=== PATIENT | female | born 1955 | race Caucasian/White ===

== ENCOUNTER 2016-12-01 14:04 | Emergency (ER) | payer BC ==
[~2016-12-01] VITALS: Ht 165.1 cm; Wt 88.6 kg
[2016-12-01 14:07] VITALS: BP 201/98; PULSE 89; RESP 14; TEMP 98.1; O2SAT 98
[2016-12-01] MEDS ORDERED: TRIA1TAB21 PO (16:15)
[2016-12-01] MEDS ORDERED: TRAZ300T2 PO (16:15)
[2016-12-01] MEDS ORDERED: PRIS100T PO (16:15)
[2016-12-01] MEDS ORDERED: XANA1TAB PO (16:15)
[2016-12-01 16:31] LABS: AUTOMATED NEUTROPHIL # 8.3 TH/MM3 (1.8-7.7); BASOPHIL % 0.4 % (0.0-2.0); EOSINOPHIL % 0.3 % (0.0-4.0); HEMATOCRIT 43.7 % (35.0-46.0); HEMO FLAGS DIFF FINAL; LYMPH % 16.4 % (9.0-44.0); LYMPHOCYTE # 1.8 TH/MM3 (1.0-4.8); MEAN CELL VOLUME 90.1 FL (80.0-100.0); MEAN CORPUSCULAR HEMOGLOBIN 31.5 PG (27.0-34.0); MONO % 6.1 % (0.0-8.0); NEUT % 76.8 % (16.0-70.0); PLATELET COUNT 204 TH/MM3 (150-450); RED BLOOD COUNT 4.85 MIL/MM3 (4.00-5.30); RED CELL DISTRIBUTION WIDTH 14.2 % (11.6-17.2); WHITE BLOOD COUNT 10.8 TH/MM3 (4.0-11.0)
--- NOTE | 2016-12-01 16:49 | RADRPT ---
EXAM DATE/TIME: 12/01/2016 16:24 [facility] COMPARISON: No previous studies available for comparison. INDICATIONS : Bilateral upper and lower extremity weakness. RADIATION DOSE: 31.69 CTDIvol (mGy) MEDICAL HISTORY : None SURGICAL HISTORY : Appendectomy. ENCOUNTER: Initial ACUITY: 1 month PAIN SCALE: 0/10 LOCATION: cranial TECHNIQUE: Multiple contiguous axial images were obtained of the head. Using automated exposure control and adj ustment of the mA and/or kV according to patient size, radiation dose was kept as low as reasonably a chievable to obtain optimal diagnostic quality images. FINDINGS: CEREBRUM: The ventricles are normal for age. No evidence of midline shift, mass lesion, hemorrhage or acute in farction. No extra-axial fluid collections are seen. POSTERIOR FOSSA: The cerebellum and brainstem are intact. The 4th ventricle is midline. The cerebellopontine angle i s unremarkable. EXTRACRANIAL: The visualized portion of the orbits is intact. SKULL: The calvaria is intact. No evidence of skull fracture. CONCLUSION: Normal examination for a patient of this age. Sedrick Smith MD on December 01, 2016 at 16:47 Board Certified Radiologist. This report was verified electronically.
[2016-12-01 17:00] VITALS: BP 162/84; PULSE 72; RESP 19; O2SAT 97
--- NOTE | 2016-12-01 17:19 | RADRPT ---
EXAM DATE/TIME: 12/01/2016 16:24 [facility] COMPARISON: No previous studies available for comparison. INDICATIONS : Radiculopathy. RADIATION DOSE: 23.21 CTDIvol (mGy) MEDICAL HISTORY : None SURGICAL HISTORY : Appendectomy. ENCOUNTER: Initial ACUITY: 1 month PAIN SCALE: 0/10 LOCATION: Bilateral neck TECHNIQUE: Volumetric scanning of the cervical spine was performed. Multiplanar reconstructions in the sagittal, coronal and oblique axial planes were performed. Using automated exposure control and adjustment o f the mA and/or kV according to patient size, radiation dose was kept as low as reasonably achievable to obtain optimal diagnostic quality images. FINDINGS: There is moderate degenerative disc disease in the cervical spine. There is a mild to moderate bony f oraminal stenosis on the right side at C5-6. No significant central canal stenosis. No fracture or sp ondylolisthesis. No prevertebral soft tissue swelling. Mild facet arthropathy. CONCLUSION: 1. Moderate degenerative disc disease. Bony foraminal stenosis on the right side at C5-6. No acute fi ndings. Sedrick Smith MD on December 01, 2016 at 17:13 Board Certified Radiologist. This report was verified electronically.
--- NOTE | 2016-12-01 17:32 | PD ---
HPI Chief Complaint: Numbness/Tingling Time Seen by Provider: 17:26 Travel History International Travel<30 days: No Contact w/Intl Traveler<30days: No Traveled to known affect area: No History of Present Illness HPI 60-year-old female that presents to the ED for evaluation of numbness and tingling to her arms and legs. Per patient she's had this for over a month. Per patient's constant. Nothing makes it better or worse. He states that she went to see her primary care doctor who did some testing and was essentially negative. Unclear if any thing else was being done. Per patient she got anxious because she talked to her friends who work and radiology and they were concerned that she could have MS. She has no history of this before or any family history of this. She states the numbness and tingling mainly affects the left and right arm but also the extremities. Per patient he margins more of the tingling in the numbness itself. She denies any back injuries or neck injuries. No history of cancer. Takes no blood thinners. She states that she was checked for diabetes as well as oriented disease is by her doctor in both work and an EKG. Patient has no chest pain or shortness of breath. No pain of any kind. No blurry vision or double vision. Allergies to gout. Denies any trouble swallowing. Denies any troubles in mentation. She's never had anything like this before. 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 and vomiting Reported Meds & Prescriptions Reported Meds & Active Scripts Active Reported Trazodone (Trazodone HCl) 300 Mg Tab 300 Mg PO HS Triazolam 0.25 Mg Tab 0.5 Mg PO HS Xanax Xr 24 HR (Alprazolam) 1 Mg Tab 1 Mg PO BID Pristiq 24 HR (Desvenlafaxine ER 24 HR) 100 Mg Tab 100 Mg PO DAILY Review of Systems General / Constitutional: No: Fever, Chills, Weight Gain, Weight Loss, Other Eyes: No: Diploplia, Blurred Vision, Photophobia, Drainage, Redness, Foreign Body Sensation, Pain, Tearing, Blind Spots, Visual changes, Blindness, Other HENT: No: Headaches, Vertigo, Lightheadedness, Sore Throat, Rhinitis, Rhinorrhea, Congestion, Nosebleed, Neck Stiffness, Neck Pain, Masses, Gingival Bleeding, Dental Difficulties, Ear Discharge, Earache, Other Cardiovascular: No: Chest Pain or Discomfort, Palpitations, Irregular Rhythm, Tachycardia, Diaphoresis, Syncope, Dyspnea on exertion, Varicosities, Edema, Cyanosis, Varicosities, Phlebitis, Claudication, Other Respiratory: No: Cough, Shortness of Breath, Wheezing, Sneezing, Orthopnea, Hemoptysis, Stridor, Night Sweats, Pleuritic Pain, Other Gastrointestinal: No: Nausea, Vomiting, Diarrhea, Abdominal Pain, Hematemesis, Hematochezia, Constipation, Changes in Bowel Habits, Indigestion, Dysphagia, Loss of Appetite, Other Genitourinary: No: Urgency, Frequency, Dysuria, Nocturia, Hematuria, Decreased Urinary Output, Oliguria, Hesitancy, Dribbling, Incontinence, Pelvic Pain, Flank Pain, Dyspareunia, Discharge, Dysmenorrhea, Menorrhagia, Metorrhagia, Vaginal Bleeding, Other Musculoskeletal: No: Myalgias, Arthralgias, Limited ROM, Weakness, Cramping, Edema, Pain, Atrophy, Other Skin: No Rash, No Itching, No Dryness, No Lumps, No Hives, No Change in Pigmentation, No Change in nails, No Alopecia, No Lesions, No Breast Lumps, No Breast Tenderness, No Breast Swelling, No Other Neurologic: Positive: Paresthesia, No: Weakness, Dizziness, Syncope, Focal Abnormalities, Coordination Problem, Tremor, Ataxia, Headache, Change in Mentation, Slurred Speech, Incontinence, Seizures, Sensory Disturbance, Other Psychiatric: No: Anxiety, Depression, Suicidal Ideations, Disorder of Thought, Mood Disorder, Substance Abuse, Homicidal Ideation, Other Endocrine: No: Heat Intolerance, Cold Intolerance, Polyuria, Polydipsia, Other Hematologic/Lymphatic: No: Easy Bruising, Lymph Node Enlargement, Other Physical Exam Narrative GENERAL: SKIN: Warm and dry. HEAD: Atraumatic. Normocephalic. EYES: Pupils equal and round 4 mm reactive to light and accommodation. No scleral icterus. No injection or drainage. ENT: No nasal bleeding or discharge. Mucous membranes pink and moist. Tongue is midline. No uvula deviation. NECK: Trachea midline. No JVD. CARDIOVASCULAR: Regular rate and rhythm. No murmurs, S3, S4. RESPIRATORY: No accessory muscle use. Clear to auscultation. Breath sounds equal bilaterally. GASTROINTESTINAL: Abdomen soft, non-tender, nondistended. Hepatic and splenic margins not palpable. MUSCULOSKELETAL: Extremities without clubbing, cyanosis, or edema. No obvious deformities. Full range of motion of the upper and lower extremities bilaterally. 2+ pulses bilaterally. 5 out of 5 strength bilaterally. NEUROLOGICAL: Awake and alert. No obvious cranial nerve deficits. Motor grossly within normal limits. Five out of 5 muscle strength in the arms and legs. Normal speech. PSYCHIATRIC: Appropriate mood and affect; insight and judgment normal. Data Data Last Documented VS Vital Signs Date Time Temp Pulse Resp B/P Pulse Ox O2 Delivery O2 Flow Rate FiO2 12/01/16 18:16 70 17 160/74 97 Room Air 12/01/16 14:07 98.1 Orders Electrocardiogram (12/01/16 15:55) Complete Blood Count With Diff (12/01/16 15:55) Basic Metabolic Panel (Bmp) (12/01/16 15:55) Troponin I (12/01/16 15:55) Magnesium (Mg) (12/01/16 15:55) Thyroid Stimulating Hormone (12/01/16 15:55) Ct Brain W/O Iv Contrast(Rout) (12/01/16 15:55) Ct Cerv Spine W/O Contrast (12/01/16 ) Labs Laboratory Tests Test 12/01/16 12/01/16 16:10 17:25 White Blood Count 10.8 TH/MM3 Red Blood Count 4.85 MIL/MM3 Hemoglobin 15.3 GM/DL Hematocrit 43.7 % Mean Corpuscular Volume 90.1 FL Mean Corpuscular Hemoglobin 31.5 PG Mean Corpuscular Hemoglobin 35.0 % Concent Red Cell Distribution Width 14.2 % Platelet Count 204 TH/MM3 Mean Platelet Volume 8.3 FL Neutrophils (%) (Auto) 76.8 % Lymphocytes (%) (Auto) 16.4 % Monocytes (%) (Auto) 6.1 % Eosinophils (%) (Auto) 0.3 % Basophils (%) (Auto) 0.4 % Neutrophils # (Auto) 8.3 TH/MM3 Lymphocytes # (Auto) 1.8 TH/MM3 Monocytes # (Auto) 0.7 TH/MM3 Eosinophils # (Auto) 0.0 TH/MM3 Basophils # (Auto) 0.0 TH/MM3 CBC Comment DIFF FINAL Differential Comment Sodium Level 140 MEQ/L Potassium Level 4.1 MEQ/L Chloride Level 105 MEQ/L Carbon Dioxide Level 28.9 MEQ/L Anion Gap 6 MEQ/L Blood Urea Nitrogen 9 MG/DL Creatinine 0.75 MG/DL Estimat Glomerular Filtration 78 ML/MIN Rate Random Glucose 107 MG/DL Calcium Level 9.1 MG/DL Magnesium Level 2.1 MG/DL Troponin I LESS THAN 0.02 NG/ML Thyroid Stimulating Hormone 1.090 uIU/ML 3rd Gen [facility] Medical Decision Making Medical Screen Exam Complete: Yes Emergency Medical Condition: Yes Medical Record Reviewed: Yes Interpretation(s) CBC & BMP Diagram 12/01/16 16:10 12/01/16 17:25 EKG shows sinus rhythm with no sign of ischemia or arrhythmia read by me and attending. Troponin and CK-MB negative. TSH negative. Last Impressions Head CT 12/01/16 1555 Signed Impressions: Service Date/Time: Thursday, December 01, 2016 16:24 - CONCLUSION: Normal examination for a patient of this age. Sedrick Smith MD Cervical Spine CT 12/01/16 0000 Signed Impressions: Service Date/Time: Thursday, December 01, 2016 16:24 - CONCLUSION: 1. Moderate degenerative disc disease. Bony foraminal stenosis on the right side at C5-6. No acute findings. Sedrick Smith MD Differential Diagnosis Neuropathy versus peripheral neuropathy versus radiculopathy versus electron abnormality versus tumor versus mass versus stroke Narrative Course 61-year-old female that presents to the ED for evaluation of numbness and tingling to the arms and legs for one month. Patient was properly examined and was found to have signs and symptoms which appeared to be consistent with peripheral neuropathy. I do not see any sign of acute medical distress. Patient has no obvious findings suggestive of stroke or severe disease. Recommendation at this time is to do imaging to make sure there is no other acute disease and some basic lab work. Patient agrees first to proceed. Labs and imaging showed no sign of acute disease. My attending Dr. Myers evaluated the patient with me and agrees with plan. Patient was reassured and labs and imaging were essentially unremarkable. Recommendation is for follow with neurology. See ED worsening symptoms. She is happy with care. All questions were answered to the best of our ability. Diagnosis Primary Impression: Peripheral neuropathy Qualified Code: G62.9 - Peripheral polyneuropathy Referrals: Jose Silverio PhD MD Patient Instructions: General Instructions Additional Instructions: Follow with neurologist. See ED for any worsening symptoms. Continue taking the medications prescribed by your doctor. Med/Other Pt SpecificInfo: No Change to Meds Disposition: 01 DISCHARGE HOME Condition: Stable Panda Seymour Dec 01, 2016 17:32
--- NOTE | 2016-12-01 17:59 | PD ---
Data Data Last Documented VS Vital Signs Date Time Temp Pulse Resp B/P Pulse Ox O2 Delivery O2 Flow Rate FiO2 12/01/16 14:07 98.1 89 14 201/98 98 Orders Electrocardiogram (12/01/16 15:55) Complete Blood Count With Diff (12/01/16 15:55) Basic Metabolic Panel (Bmp) (12/01/16 15:55) Troponin I (12/01/16 15:55) Magnesium (Mg) (12/01/16 15:55) Thyroid Stimulating Hormone (12/01/16 15:55) Ct Brain W/O Iv Contrast(Rout) (12/01/16 15:55) Ct Cerv Spine W/O Contrast (12/01/16 ) Labs Laboratory Tests Test 12/01/16 16:10 White Blood Count 10.8 TH/MM3 Red Blood Count 4.85 MIL/MM3 Hemoglobin 15.3 GM/DL Hematocrit 43.7 % Mean Corpuscular Volume 90.1 FL Mean Corpuscular Hemoglobin 31.5 PG Mean Corpuscular Hemoglobin 35.0 % Concent Red Cell Distribution Width 14.2 % Platelet Count 204 TH/MM3 Mean Platelet Volume 8.3 FL Neutrophils (%) (Auto) 76.8 % Lymphocytes (%) (Auto) 16.4 % Monocytes (%) (Auto) 6.1 % Eosinophils (%) (Auto) 0.3 % Basophils (%) (Auto) 0.4 % Neutrophils # (Auto) 8.3 TH/MM3 Lymphocytes # (Auto) 1.8 TH/MM3 Monocytes # (Auto) 0.7 TH/MM3 Eosinophils # (Auto) 0.0 TH/MM3 Basophils # (Auto) 0.0 TH/MM3 CBC Comment DIFF FINAL Differential Comment Troponin I LESS THAN 0.02 NG/ML Thyroid Stimulating Hormone 1.090 uIU/ML 3rd Gen MDM Supervised Visit with MARINO: Yes Narrative Course I, Dr. Perera, have reviewed the advance practice practioner's documentation and am in agreement, met with the patient face to face, made the diagnosis, and the medical decision making was done by me. *My assessment and Findings: 60-year-old female here with complaint of paresthesias to the bilateral arms and legs for the last month, hasn't found anything that makes the symptoms better or worse. She was seen by her PCP to get an EKG and blood work that was unremarkable. She does not have any history of diabetes, neuropathy. Patient has not had any weakness. She notes the numbness and tingling to be greatest in the fourth and fifth digits in the right hand as well as the left foot. Neurologic examination is unremarkable except for subjective paresthesias within these areas. Differential includes neuropathy, polyneuropathy, less likely cervical radiculopathy, intracranial mass lesion, electrolyte abnormality given the bilaterality and duration of her symptoms. CT brain and cervical spine shows minimal mild degenerative changes but no acute abnormalities. His laboratory workup unremarkable will discharge home with outpatient neurology follow-up for potential outpatient MRI and EMG. Rossy Perera MD Dec 01, 2016 17:59
[2016-12-01 18:16] VITALS: BP 160/74; PULSE 70; RESP 17; O2SAT 97
[2016-12-01 18:47] LABS: ANION GAP 6 MEQ/L (5-15); BICARBONATE 28.9 MEQ/L (21.0-32.0); BLOOD UREA NITROGEN 9 MG/DL (7-18); CHLORIDE 105 MEQ/L (98-107); GLOMERULAR FILTRATION RATE 78 ML/MIN (>89); MAGNESIUM 2.1 MG/DL (1.5-2.5); POTASSIUM 4.1 MEQ/L (3.5-5.1); SODIUM (NA) 140 MEQ/L (136-145)
--- NOTE | 2016-12-02 14:31 | EKG ---
Date Performed: 12/01/2016 Time Performed: 16:06:29 PTAGE: 61 years EKG: Sinus rhythm NORMAL ECG NO PREVIOUS TRACING DOCTOR: Julito Espinal Interpretating Date/Time 12/02/2016 14:28:28
== END 2016-12-01 19:23 | disposition home or self-care (01) ==
LOC: NEPC 14:04
DX: G62.9 Polyneuropathy, unspecified (principal); F32.9 Major depressive disorder, single episode, unspecified
CPT/HCPCS: 70450; 72125; 80048; 83735; 84443; 84484; 85025; 93005

== ENCOUNTER 2017-10-22 18:32 | Emergency (ER) | payer BC, OTHER ==
[~2017-10-22 18:32] MED LIST: PRIS100T PO; TRAZ300T2 PO; TRIA1TAB21 PO; XANA1TAB PO
[2017-10-22 19:13] VITALS: BP 142/72; PULSE 88; RESP 18; TEMP 98.1; O2SAT 98
[2017-10-22] MEDS ORDERED: [UNRECOGNIZED DRUG - CODE] PO (20:09)
[2017-10-22] MEDS ORDERED: BREX1TAB2 PO (20:11)
[2017-10-22 20:12] VITALS: BP 128/78; PULSE 83; RESP 17; TEMP 98.5; O2SAT 95
[2017-10-22 20:37] LABS: AUTOMATED NEUTROPHIL # 8.3 TH/MM3 (1.8-7.7); BASOPHIL % 0.4 % (0.0-2.0); EOSINOPHIL # 0.1 TH/MM3 (0-0.4); EOSINOPHIL % 0.5 % (0.0-4.0); HEMOGLOBIN 16.4 GM/DL (11.6-15.3); LYMPHOCYTE # 2.8 TH/MM3 (1.0-4.8); MEAN CELL VOLUME 92.9 FL (80.0-100.0); MEAN CORPUSCULAR HEMOGLOBIN 31.7 PG (27.0-34.0); MEAN CORPUSCULAR HGB CONC 34.1 % (32.0-36.0); MEAN PLATELET VOLUME 7.6 FL (7.0-11.0); MONO % 4.3 % (0.0-8.0); MONOCYTE # 0.5 TH/MM3 (0-0.9); NEUT % 70.8 % (16.0-70.0); PLATELET COUNT 281 TH/MM3 (150-450); RED BLOOD COUNT 5.16 MIL/MM3 (4.00-5.30); RED CELL DISTRIBUTION WIDTH 13.6 % (11.6-17.2); WHITE BLOOD COUNT 11.7 TH/MM3 (4.0-11.0)
[2017-10-22 20:54] LABS: ALBUMIN 3.8 GM/DL (3.4-5.0); ALT (GPT) 32 U/L (10-53); AST (GOT) 19 U/L (15-37); BICARBONATE 24.1 MEQ/L (21.0-32.0); BLOOD UREA NITROGEN 13 MG/DL (7-18); CHLORIDE 107 MEQ/L (98-107); CREATININE 0.63 MG/DL (0.50-1.00); GLOMERULAR FILTRATION RATE 95 ML/MIN (>89); GLUCOSE,RANDOM 92 MG/DL (74-106); SODIUM (NA) 141 MEQ/L (136-145)
[2017-10-22 20:57] LABS: ALKALINE PHOSPHATASE 93 U/L (45-117); TOTAL BILIRUBIN ADULT 0.4 MG/DL (0.2-1.0); TOTAL PROTEIN 7.8 GM/DL (6.4-8.2)
[2017-10-22 22:09] LABS: AMORPHOUS SEDIMENT, URINE RARE; BACTERIA, URINE OCC /hpf; BILIRUBIN, URINE NEG (NEG); BLOOD, URINE NEG (NEG); GLUCOSE,URINE NEG (NEG); KETONE, URINE NEG (NEG); NITRITE,URINE NEG (NEG); PH, URINE 5.5 (5.0-8.5); SQUAMOUS EPITHELIAL CELL URINE 1 /hpf (0-5); URINE COLOR LIGHT-YELLOW (YELLW/STRAW); URINE LEUKOCYTE ESTERASE NEG (NEG)
[2017-10-22 22:15] VITALS: BP 157/75; PULSE 95; RESP 18; TEMP 98.6; O2SAT 95
--- NOTE | 2017-10-22 23:55 | PD ---
HPI Chief Complaint: Psychiatric Symptoms Time Seen by Provider: 23:24 Travel History International Travel<30 days: No Contact w/Intl Traveler<30days: No Traveled to known affect area: No History of Present Illness HPI 62-year-old white female presents to emergency department under [place] act by PD. The patient had notified family members that she was feeling depressed and having suicidal thoughts of overdose. The patient states that she was upset with her ex-boyfriend who she had with back in August. She states that they've been trying to get back together but she just recently found out that he was cheating on her with another woman. The patient admits to drinking alcohol today. She denies any true suicidal ideation. She states that she was only saying this and hopes to have her children side on her behalf. She denies any homicidal ideation. No toxic ingestions. No recent medical complaints. She states that she had neuropathy that was treated by Dr. Mohan with vitamins which resolved. Patient does smoke marijuana on occasion. No other drugs. PFSH Past Medical History Narrative Medical Anxiety, depression, neuropathy-resolved Anxiety: Yes Depression: Yes Diminished Hearing: No Insomnia: Yes Psychiatric: Yes Tetanus Vaccination: < 5 Years ?: Not Dilation and Curettage (D&C): Yes Past Surgical History Narrative Surgical Tonsillectomy, appendectomy Appendectomy: Yes Oral Surgery: Yes Tonsillectomy: Yes Social History Alcohol Use: Yes (on occasion) Tobacco Use: Yes (PACK [employer] SMO[employer] ) Substance Use: Yes (marijuana) Allergies-Medications (Allergen,Severity, Reaction): Uncoded Allergies: gout medication (Allergy, Intermediate, 12/01/16) severe FAIRCHILD and vomiting Reported Meds & Prescriptions Reported Meds & Active Scripts Active Reported Rexulti (Brexpiprazole) 0.5 Mg Tab 0.5 Mg PO DAILY Triazolam 0.125 Mg Tab 0.5 Mg PO HS Trazodone (Trazodone HCl) 300 Mg Tab 300 Mg PO HS Xanax Xr 24 HR (Alprazolam) 1 Mg Tab 1 Mg PO TID Pristiq 24 HR (Desvenlafaxine ER 24 HR) 100 Mg Tab 100 Mg PO DAILY Review of Systems General / Constitutional: No: Fever Eyes: No: Visual changes HENT: No: Headaches Cardiovascular: No: Chest Pain or Discomfort Respiratory: No: Shortness of Breath Gastrointestinal: No: Abdominal Pain Genitourinary: No: Dysuria Musculoskeletal: No: Pain Skin: No Rash Neurologic: No: Weakness Psychiatric: Positive: Anxiety, Depression, Mood Disorder, Substance Abuse, No : Suicidal Ideations, Disorder of Thought, Homicidal Ideation Endocrine: No: Polydipsia Hematologic/Lymphatic: No: Easy Bruising Physical Exam Narrative GENERAL: Well-nourished, well-developed patient. SKIN: Warm and dry. HEAD: Normocephalic and atraumatic. EYES: No scleral icterus. No injection or drainage. ENT: No nasal drainage noted. Mucous membranes pink. Airway patent. NECK: Supple, trachea midline. Moves head freely without obvious discomfort. CARDIOVASCULAR: Regular rate and rhythm without murmurs, gallops, or rubs. RESPIRATORY: Breath sounds equal bilaterally. No accessory muscle use. GASTROINTESTINAL: Abdomen soft, non-tender, nondistended. EXTREMITIES: No cyanosis or edema. BACK: Nontender without obvious deformity. No CVA tenderness. NEURO: Patient is alert and oriented. no sensorimotor deficits. Nonfocal. Normal speech. PSYCH: No delusions. No auditory or visual hallucinations. Data Data Last Documented VS Vital Signs Date Time Temp Pulse Resp B/P (MAP) Pulse Ox O2 Delivery O2 Flow Rate FiO2 10/22/17 22:15 98.6 95 18 157/75 (102) 95 Room Air Orders Orders Complete Blood Count With Diff (10/22/17 19:35) Comprehensive Metabolic Panel (10/22/17 19:35) Psych Screen (10/22/17 19:35) Urinalysis - C+S If Indicated (10/22/17 21:25) Drug Screen, Random Urine (10/22/17 21:25) Trazodone (Desyrel) (10/23/17 00:00) Diphenhydramine (Benadryl) (10/23/17 00:00) Labs Laboratory Tests Test 10/22/17 18:44 10/22/17 19:36 Urine Color LIGHT-YELLOW Urine Turbidity CLEAR Urine pH 5.5 Urine Specific [place] 1.003 Urine Protein NEG mg/dL Urine Glucose (UA) NEG mg/dL Urine Ketones NEG mg/dL Urine Occult Blood NEG Urine Nitrite NEG Urine Bilirubin NEG Urine Urobilinogen LESS THAN 2.0 MG/DL Urine Leukocyte Esterase NEG Urine RBC LESS THAN 1 /hpf Urine WBC 1 /hpf Urine Squamous Epithelial Cells 1 /hpf Urine Amorphous Sediment RARE Urine Bacteria OCC /hpf Microscopic Urinalysis Comment CULT NOT INDICATED Urine Opiates Screen NEG Urine Barbiturates Screen NEG Urine Amphetamines Screen NEG Urine Benzodiazepines Screen POS Urine Cocaine Screen NEG Urine Cannabinoids Screen POS White Blood Count 11.7 TH/MM3 Red Blood Count 5.16 MIL/MM3 Hemoglobin 16.4 GM/DL Hematocrit 48.0 % Mean Corpuscular Volume 92.9 FL Mean Corpuscular Hemoglobin 31.7 PG Mean Corpuscular Hemoglobin Concent 34.1 % Red Cell Distribution Width 13.6 % Platelet Count 281 TH/MM3 Mean Platelet Volume 7.6 FL Neutrophils (%) (Auto) 70.8 % Lymphocytes (%) (Auto) 24.0 % Monocytes (%) (Auto) 4.3 % Eosinophils (%) (Auto) 0.5 % Basophils (%) (Auto) 0.4 % Neutrophils # (Auto) 8.3 TH/MM3 Lymphocytes # (Auto) 2.8 TH/MM3 Monocytes # (Auto) 0.5 TH/MM3 Eosinophils # (Auto) 0.1 TH/MM3 Basophils # (Auto) 0.0 TH/MM3 CBC Comment DIFF FINAL Differential Comment Blood Urea Nitrogen 13 MG/DL Creatinine 0.63 MG/DL Random Glucose 92 MG/DL Total Protein 7.8 GM/DL Albumin 3.8 GM/DL Calcium Level 9.0 MG/DL Alkaline Phosphatase 93 U/L Aspartate Amino Transf (AST/SGOT) 19 U/L Alanine Aminotransferase (ALT/SGPT) 32 U/L Total Bilirubin 0.4 MG/DL Sodium Level 141 MEQ/L Potassium Level 3.9 MEQ/L Chloride Level 107 MEQ/L Carbon Dioxide Level 24.1 MEQ/L Anion Gap 10 MEQ/L Estimat Glomerular Filtration Rate 95 ML/MIN MDM Medical Decision Making Medical Screen Exam Complete: Yes Emergency Medical Condition: Yes Medical Record Reviewed: Yes Interpretation(s) Laboratory Tests Test 10/22/17 18:44 10/22/17 19:36 Urine Color LIGHT-YELLOW Urine Turbidity CLEAR Urine pH 5.5 Urine Specific [place] 1.003 Urine Protein NEG mg/dL Urine Glucose (UA) NEG mg/dL Urine Ketones NEG mg/dL Urine Occult Blood NEG Urine Nitrite NEG Urine Bilirubin NEG Urine Urobilinogen LESS THAN 2.0 MG/DL Urine Leukocyte Esterase NEG Urine RBC LESS THAN 1 /hpf Urine WBC 1 /hpf Urine Squamous Epithelial Cells 1 /hpf Urine Amorphous Sediment RARE Urine Bacteria OCC /hpf Microscopic Urinalysis Comment CULT NOT INDICATED Urine Opiates Screen NEG Urine Barbiturates Screen NEG Urine Amphetamines Screen NEG Urine Benzodiazepines Screen POS Urine Cocaine Screen NEG Urine Cannabinoids Screen POS White Blood Count 11.7 TH/MM3 Red Blood Count 5.16 MIL/MM3 Hemoglobin 16.4 GM/DL Hematocrit 48.0 % Mean Corpuscular Volume 92.9 FL Mean Corpuscular Hemoglobin 31.7 PG Mean Corpuscular Hemoglobin Concent 34.1 % Red Cell Distribution Width 13.6 % Platelet Count 281 TH/MM3 Mean Platelet Volume 7.6 FL Neutrophils (%) (Auto) 70.8 % Lymphocytes (%) (Auto) 24.0 % Monocytes (%) (Auto) 4.3 % Eosinophils (%) (Auto) 0.5 % Basophils (%) (Auto) 0.4 % Neutrophils # (Auto) 8.3 TH/MM3 Lymphocytes # (Auto) 2.8 TH/MM3 Monocytes # (Auto) 0.5 TH/MM3 Eosinophils # (Auto) 0.1 TH/MM3 Basophils # (Auto) 0.0 TH/MM3 CBC Comment DIFF FINAL Differential Comment Blood Urea Nitrogen 13 MG/DL Creatinine 0.63 MG/DL Random Glucose 92 MG/DL Total Protein 7.8 GM/DL Albumin 3.8 GM/DL Calcium Level 9.0 MG/DL Alkaline Phosphatase 93 U/L Aspartate Amino Transf (AST/SGOT) 19 U/L Alanine Aminotransferase (ALT/SGPT) 32 U/L Total Bilirubin 0.4 MG/DL Sodium Level 141 MEQ/L Potassium Level 3.9 MEQ/L Chloride Level 107 MEQ/L Carbon Dioxide Level 24.1 MEQ/L Anion Gap 10 MEQ/L Estimat Glomerular Filtration Rate 95 ML/MIN Differential Diagnosis MDM: High Differential diagnoses: Schizophrenia, schizoaffective disorder, bipolar, anxiety, depression, adjustment reaction, mood disorder NOS, ODD, depressive disorder NOS, dementia, dementia with agitation, psychosis NOS, substance induced mood disorder, DMDD, Asperger syndrome, infection,electrolyte abnormality, malingering. Narrative Course Mental health screening discussed with the patient. Psychiatric screen ordered. The patient is been medically cleared. Patient's given her 300 mg trazodone dose as well as Benadryl 50 mg by mouth. This is medical clearance exam for psychiatric admission Diagnosis Primary Impression: Medical clearance for psychiatric admission Condition: Stable Sedrick Saunders Oct 22, 2017 23:55
[2017-10-23] MEDS ORDERED: traZODone HCL 100 MG TAB PO ONE
[2017-10-23] MEDS ORDERED: diphenhydrAMINE HCL 50 MG CAP PO ONE
[2017-10-23 04:00] VITALS: BP 179/81; PULSE 99; RESP 17; TEMP 98.7; O2SAT 95
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
--- NOTE | 2017-10-23 09:46 | PD ---
Physical Exam Time Seen by Provider: 09:45 Data Data Last Documented VS Vital Signs Date Time Temp Pulse Resp B/P (MAP) Pulse Ox O2 Delivery O2 Flow Rate FiO2 10/23/17 04:00 98.7 99 17 179/81 (113) 95 Room Air Orders Orders Complete Blood Count With Diff (10/22/17 19:35) Comprehensive Metabolic Panel (10/22/17 19:35) Psych Screen (10/22/17 19:35) Urinalysis - C+S If Indicated (10/22/17 21:25) Drug Screen, Random Urine (10/22/17 21:25) Trazodone (Desyrel) (10/23/17 00:00) Diphenhydramine (Benadryl) (10/23/17 00:00) Diet Regular Basic (10/23/17 Breakfast) Labs Laboratory Tests Test 10/22/17 18:44 10/22/17 19:36 Urine Color LIGHT-YELLOW Urine Turbidity CLEAR Urine pH 5.5 Urine Specific [place] 1.003 Urine Protein NEG mg/dL Urine Glucose (UA) NEG mg/dL Urine Ketones NEG mg/dL Urine Occult Blood NEG Urine Nitrite NEG Urine Bilirubin NEG Urine Urobilinogen LESS THAN 2.0 MG/DL Urine Leukocyte Esterase NEG Urine RBC LESS THAN 1 /hpf Urine WBC 1 /hpf Urine Squamous Epithelial Cells 1 /hpf Urine Amorphous Sediment RARE Urine Bacteria OCC /hpf Microscopic Urinalysis Comment CULT NOT INDICATED Urine Opiates Screen NEG Urine Barbiturates Screen NEG Urine Amphetamines Screen NEG Urine Benzodiazepines Screen POS Urine Cocaine Screen NEG Urine Cannabinoids Screen POS White Blood Count 11.7 TH/MM3 Red Blood Count 5.16 MIL/MM3 Hemoglobin 16.4 GM/DL Hematocrit 48.0 % Mean Corpuscular Volume 92.9 FL Mean Corpuscular Hemoglobin 31.7 PG Mean Corpuscular Hemoglobin Concent 34.1 % Red Cell Distribution Width 13.6 % Platelet Count 281 TH/MM3 Mean Platelet Volume 7.6 FL Neutrophils (%) (Auto) 70.8 % Lymphocytes (%) (Auto) 24.0 % Monocytes (%) (Auto) 4.3 % Eosinophils (%) (Auto) 0.5 % Basophils (%) (Auto) 0.4 % Neutrophils # (Auto) 8.3 TH/MM3 Lymphocytes # (Auto) 2.8 TH/MM3 Monocytes # (Auto) 0.5 TH/MM3 Eosinophils # (Auto) 0.1 TH/MM3 Basophils # (Auto) 0.0 TH/MM3 CBC Comment DIFF FINAL Differential Comment Blood Urea Nitrogen 13 MG/DL Creatinine 0.63 MG/DL Random Glucose 92 MG/DL Total Protein 7.8 GM/DL Albumin 3.8 GM/DL Calcium Level 9.0 MG/DL Alkaline Phosphatase 93 U/L Aspartate Amino Transf (AST/SGOT) 19 U/L Alanine Aminotransferase (ALT/SGPT) 32 U/L Total Bilirubin 0.4 MG/DL Sodium Level 141 MEQ/L Potassium Level 3.9 MEQ/L Chloride Level 107 MEQ/L Carbon Dioxide Level 24.1 MEQ/L Anion Gap 10 MEQ/L Estimat Glomerular Filtration Rate 95 ML/MIN MDM Medical Record Reviewed: Yes Supervised Visit with MARINO: No Narrative Course See previous providers notes. This patients Lorenzo act has been lifted by Dr. Delacruz. She feels well and has no medical issue that would warrant additional hospitalization. She is stable for discharge. Diagnosis Primary Impression: Adjustment disorder with mixed disturbance of emotions and conduct Condition: Stable Simone Saab Oct 23, 2017 09:46
== END 2017-10-23 10:29 | disposition home or self-care (01) ==
LOC: NEDAMB 18:32 → NEPJ 10-23 10:29
DX: F43.25 Adjustment disorder with mixed disturbance of emotions and conduct (principal); F12.90 Cannabis use, unspecified, uncomplicated; F17.210 Nicotine dependence, cigarettes, uncomplicated; Z79.899 Other long term (current) drug therapy
CPT/HCPCS: 80053; 80307; 81001; 85025; 99284; Q0163